=== PATIENT | female | born 1975 | race Caucasian/White ===

== ENCOUNTER 2016-11-07 13:30 | Emergency (ER) | payer SELFPAY ==
[~2016-11-07] VITALS: Ht 154.9 cm; Wt 95.5 kg
[~2016-11-07 13:30] MED LIST: ALBUTEROL S2.5 MG/.5 IN; BACTRIM DS1 TAB PO; CLINDAMYCIN HC150 MG PO; FLOVENT HFA44 MCG IN; FUROSEMIDE40 MG PO; LEVOTHYROXIN100 MCG PO; LEVOTHYROXINE; LIPITOR40 M1 PO; LISINOPRIL2.5 MG PO; LORATADINE10 M1 PO; METFORMIN500 MG PO; MICRO-K10 ME1 PO; MUPIROCIN2 % EX; NAPROSYN500 MG PO; NORCO1 TA1 PO; PANTOPRAZOLE SO40 MG PO; PROVENTIL HFA IN; QVAR80 MCG IN; SINGULAIR10 MG PO; ULTRAM50 M1 PO
[2016-11-07 13:37] VITALS: BP 132/74
[2016-11-07] MEDS ORDERED: EC-NAPROSYN500 MG PO (14:02)
[2016-11-07] MEDS ORDERED: PERCOCET 5/325M1 TAB PO (14:02)
[2016-11-07] MEDS ORDERED: FLEXERIL PO (14:02)
== END 2016-11-07 14:15 | disposition home or self-care (01) | DRG 556 ==
LOC: ED 13:30
DX: M62.838 Other muscle spasm (principal); R07.89 Other chest pain

== ENCOUNTER 2018-09-07 20:14 | Emergency (ER) | payer SELFPAY ==
[~2018-09-07] VITALS: Ht 154.9 cm; Wt 104.0 kg
[~2018-09-07 20:14] MED LIST changes: +EC-NAPROSYN500 MG PO; +FLEXERIL PO; +PERCOCET 5/325M1 TAB PO
[2018-09-07] MEDS ORDERED: ADDERALL20 MG PO (21:02)
[2018-09-07] MEDS ORDERED: PROVENTIL108 MCG/AC PO (21:13)
[2018-09-07] MEDS ORDERED: FLOVENT HF220 MCG/AC PO (21:13)
[2018-09-07] MEDS ORDERED: VYVANSE40 MG PO (21:13)
[2018-09-07] MEDS ORDERED: VIIBRYD40 MG PO (21:14)
[2018-09-07] MEDS ORDERED: LEVOTHYROXIN150 MC1 PO (21:14)
[2018-09-07] MEDS ORDERED: PERCOCET 10/31 COMBO PO (21:38)
[2018-09-07 21:40] VITALS: BP 118/77
== END 2018-09-07 21:40 | disposition home or self-care (01) | DRG 563 ==
LOC: ED 20:14
DX: S83.91XA Sprain of unspecified site of right knee, initial encounter (principal); J45.909 Unspecified asthma, uncomplicated; F41.9 Anxiety disorder, unspecified; F32.9 Major depressive disorder, single episode, unspecified; M19.90 Unspecified osteoarthritis, unspecified site; F17.200 Nicotine dependence, unspecified, uncomplicated; X58.XXXA Exposure to other specified factors, initial encounter

== ENCOUNTER → 2018-10-06 | Outpatient (REF) | payer BC ==
[~2018-10-06] MED LIST changes: +ADDERALL20 MG PO; +FLOVENT HF220 MCG/AC PO; +LEVOTHYROXIN150 MC1 PO; +PERCOCET 10/31 COMBO PO; +PROVENTIL108 MCG/AC PO; +VIIBRYD40 MG PO; +VYVANSE40 MG PO
== END | disposition home or self-care (01) | DRG 645 ==
LOC: ULTRASND 11:00
PROVIDERS: ATTEND Physician Assistant Medical
DX: E04.1 Nontoxic single thyroid nodule (principal)

== ENCOUNTER → 2018-10-22 | Outpatient (REF) | END | disposition home or self-care (01) | DRG 556 | LOC: LAB 12:21 | PROVIDERS: ATTEND Physician Assistant Medical | DX: M25.50 Pain in unspecified joint (principal); R73.01 Impaired fasting glucose; E03.9 Hypothyroidism, unspecified ==

== ENCOUNTER 2022-09-15 18:16 | Emergency (ER) | payer SELFPAY ==
[~2022-09-15] VITALS: Ht 154.9 cm; Wt 97.5 kg
[2022-09-15] MEDS ORDERED: TRAMADOL HCL50 MG PO (19:43)
[2022-09-15 19:47] VITALS: BP 155/87
== END 2022-09-15 19:52 | disposition home or self-care (01) | DRG 563 ==
LOC: ED 18:16
DX: S46.911A Strain of unspecified muscle, fascia and tendon at shoulder and upper arm level, right arm, initial encounter (principal); W01.0XXA Fall on same level from slipping, tripping and stumbling without subsequent striking against object, initial encounter; F41.8 Other specified anxiety disorders; J45.909 Unspecified asthma, uncomplicated

== ENCOUNTER 2023-01-25 14:25 | Emergency (ER) | payer MEDICAID ==
[~2023-01-25] VITALS: Ht 154.9 cm; Wt 100.0 kg
[2023-01-25] VITALS (11 sets, daily range): BP systolic 124–157; BP diastolic 63–90
[~2023-01-25 14:25] MED LIST changes: +TRAMADOL HCL50 MG PO
[2023-01-25 15:04] LABS: BASO% 0.5 % (0-3); EOS% 2.4 % (0-8); MEAN CORPUSCULAR HGB 18.4 pG CALC (26.0-32.0); MEAN CORPUSCULAR HGB CONC 27.8 g/dL CAL (32.0-36.0); MONO% 4.7 % (2-13); NEUT# 6.98 thou/uL (2.00-7.15); NEUT% 73.4 % (42-76); RED BLOOD COUNT 3.64 mill/uL (4.20-5.60)
[2023-01-25 15:06] LABS: HEMATOCRIT 24.1 % (37.0-47.0); MEAN CELL VOLUME 66.2 fL CALC (80.0-100.0)
[2023-01-25 15:07] LABS: HEMOGLOBIN 6.7 g/dl (12.0-16.0)
[2023-01-25 15:17] LABS: ALBUMIN 4.3 g/dL (3.2-5.0); ALKALINE PHOSPHATASE 126 u/l (38-126); ANION GAP 15 (6-22 (CALC)); BILIRUBIN, TOTAL 0.2 mg/dL (0.02-1.3); BUN 10 mg/dL (7-17); BUN/CREATININE RATIO 11 (12-20 (CALC)); CARBON DIOXIDE 24 mmol/l (22-30); CHLORIDE 106 mmol/l (95-108); CREATININE 0.8 mg/dL (0.5-1.0); GFR FOR AFR.AMER. > 60 ML/MIN (>=60 (CALC)); GFR OTHER RACES > 60 ML/MIN (>=60 (CALC)); POTASSIUM 3.6 mmol/l (3.5-5.1); SGOT/AST 33 u/l (14-36); SODIUM 141 mmol/l (137-146); TOTAL PROTEIN 7.6 g/dL (6.3-8.2)
[2023-01-25] MEDS ORDERED: IPRATROPIUM BROMIDE IN (19:07)
[2023-01-25] MEDS ORDERED: FEOSOL45 MG PO (20:37)
== END 2023-01-25 21:14 | disposition home or self-care (01) ==
LOC: ED 14:25
PROVIDERS: Family Medicine
DX: D62 Acute posthemorrhagic anemia (principal); N92.1 Excessive and frequent menstruation with irregular cycle; R07.89 Other chest pain; J45.909 Unspecified asthma, uncomplicated; F32.A Depression, unspecified; F41.9 Anxiety disorder, unspecified; F17.200 Nicotine dependence, unspecified, uncomplicated
CPT/HCPCS: P9016

== ENCOUNTER 2024-08-15 18:50 | Observation (INO) | payer SELFPAY ==
[~2024-08-15] VITALS: Ht 154.9 cm; Wt 97.0 kg
[2024-08-15] VITALS (22 sets, daily range): BP systolic 73–145; BP diastolic 57–80
[~2024-08-15 18:50] MED LIST changes: +FEOSOL45 MG PO; +IPRATROPIUM BROMIDE IN
[2024-08-15] MEDS ORDERED: KETOROLAC TROMETHAMINE 30 MG/ML SDV IV STA (19:16)
[2024-08-15 19:45] LABS: URINE BILIRUBIN - DIPSTICK Negative (NEGATIVE); URINE BLOOD DIPSTICK Negative (NEGATIVE); URINE COLOR Yellow; URINE GLUCOSE - DIPSTICK Negative (NEGATIVE); URINE KETONE Negative (NEGATIVE); URINE LEUK ESTERASE Negative (NEGATIVE); URINE NITRITE - DIPSTICK Negative (Negative); URINE PROTEIN - DIPSTICK Negative (NEG-TRACE); URINE UROBILINOGEN - DIPSTICK 0.2 E.U./dL (0.2)
[2024-08-15 19:59] LABS: BASO% 0.7 % (0-3); EOS% 2.3 % (0-8); HEMATOCRIT 23.8 % (37.0-47.0); IMMATURE GRANULOCYTES 0.4 % (0.0-5.0); LYMPH% 20.9 % (15-41); MEAN CELL VOLUME 63.6 fL CALC (80.0-100.0); MEAN CORPUSCULAR HGB 15.8 pG CALC (26.0-32.0); MEAN CORPUSCULAR HGB CONC 24.8 g/dL CAL (32.0-36.0); NEUT# 5.72 thou/uL (2.00-7.15); NEUT% 69.7 % (42-76); RED BLOOD COUNT 3.74 mill/uL (4.20-5.60); RED CELL DISTRI WIDTH 22.1 % (11.5-15.5)
[2024-08-15 20:12] LABS: ALBUMIN 4.4 g/dL (3.2-5.0); CREATININE 0.7 mg/dL (0.5-1.0); POTASSIUM 3.8 mmol/l (3.5-5.1); TOTAL PROTEIN 7.6 g/dL (6.3-8.2)
[2024-08-15 20:14] LABS: BILIRUBIN, TOTAL 0.5 mg/dL (0.02-1.3)
[2024-08-15 20:21] LABS: HEMOGLOBIN 5.9 g/dl (12.0-16.0)
[2024-08-15] MEDS ORDERED: SODIUM CHLORIDE 0.9% 500 ML IV ONE (21:14)
[2024-08-15] MEDS ORDERED: LACTATED RINGER'S 1,000 ML IV ONE (22:15)
[2024-08-15] MEDS ORDERED: ONDANSETRON 4 MG/TAB ODT SL PRN (23:00)
[2024-08-15] MEDS ORDERED: ACETAMINOPHEN 325 MG/TAB PO PRN (23:00)
[2024-08-15] MEDS ORDERED: MELATONIN 3 MG/TAB PO PRN (23:00)
[2024-08-15] MEDS ORDERED: Polyethylene Glycol 3350 17 GM/PKT PO PRN (23:00)
[2024-08-15] MEDS ORDERED: LACTATED RINGER'S 1,000 ML IV PRN (23:00)
[2024-08-15] MEDS ORDERED: oxyCODONE HCL 5 MG/TAB PO PRN (23:00)
[2024-08-15 23:21] LABS: C-REACTIVE PROTEIN < 0.5 mg/dL (0-0.9)
[2024-08-16] VITALS (11 sets, daily range): BP systolic 109–149; BP diastolic 53–83
[2024-08-16] MEDS ORDERED: LEVOTHYROXINE SODIUM 50 MCG/TAB PO SCH (06:00)
[2024-08-16 06:20] LABS: BASO% 0.5 % (0-3); EOS% 2.2 % (0-8); HEMATOCRIT 27.7 % (37.0-47.0); IMMATURE GRANULOCYTES 0.4 % (0.0-5.0); MEAN CORPUSCULAR HGB 19.3 pG CALC (26.0-32.0); MEAN CORPUSCULAR HGB CONC 28.5 g/dL CAL (32.0-36.0); MONO% 6.4 % (2-13); NEUT# 6.5 thou/uL (2.00-7.15); NEUT% 70.5 % (42-76); RED BLOOD COUNT 4.1 mill/uL (4.20-5.60); RED CELL DISTRI WIDTH 24.8 % (11.5-15.5)
[2024-08-16 06:23] LABS: HEMOGLOBIN 7.9 g/dl (12.0-16.0); MEAN CELL VOLUME 67.6 fL CALC (80.0-100.0)
[2024-08-16 06:34] LABS: ALBUMIN 3.6 g/dL (3.2-5.0); CREATININE 0.7 mg/dL (0.5-1.0); MAGNESIUM 1.8 mg/dL (1.6-2.3); POTASSIUM 3.8 mmol/l (3.5-5.1); TOTAL PROTEIN 6.6 g/dL (6.3-8.2)
[2024-08-16 06:38] LABS: BILIRUBIN, TOTAL 0.9 mg/dL (0.02-1.3)
[2024-08-16] MEDS ORDERED: Pantoprazole Sodium 40 MG VIAL (Protonix) IV SCH (09:00)
[2024-08-16] MEDS ORDERED: IRON SUCROSE COMPLEX 20 MG/ML 10ML VIAL IV ONE (10:30)
[2024-08-16] MEDS ORDERED: SODIUM CHLORIDE 0.9% 500 ML IV ONE (10:30)
[2024-08-16] MEDS ORDERED: ALBUTEROL SULFATE 2.5 MG VIAL IN PRN (12:00)
[2024-08-16] MEDS ORDERED: IRON SUCROSE COMPLEX 400 MG in SODIUM CHLORIDE 0.9% 250 ML IV SCH (13:00)
[2024-08-16] MEDS ORDERED: LEVOTHYROXIN50 MC1 PO (15:25)
[2024-08-16 18:14] LABS: HEMATOCRIT 34.9 % (37.0-47.0); HEMOGLOBIN 10.2 g/dl (12.0-16.0)
== END 2024-08-16 18:35 | disposition home or self-care (01) | DRG 812 ==
LOC: ED 18:50 → ED-I 21:26 → ED 22:17 → MS2 22:18
PROVIDERS: Family Medicine; ADMIT Internal Medicine; ATTEND Internal Medicine
PROC: 30233N1 Transfusion of Nonautologous Red Blood Cells into Peripheral Vein, Percutaneous Approach (ICD-10-PCS; principal; 2024-08-15)
PROC: 30233N1 Transfusion of Nonautologous Red Blood Cells into Peripheral Vein, Percutaneous Approach (ICD-10-PCS; 2024-08-15)
PROC: 30233N1 Transfusion of Nonautologous Red Blood Cells into Peripheral Vein, Percutaneous Approach (ICD-10-PCS; 2024-08-16)
PROC: 30233N1 Transfusion of Nonautologous Red Blood Cells into Peripheral Vein, Percutaneous Approach (ICD-10-PCS; 2024-08-16)
DX: D50.0 Iron deficiency anemia secondary to blood loss (chronic) (principal); N92.0 Excessive and frequent menstruation with regular cycle; D25.9 Leiomyoma of uterus, unspecified; E03.9 Hypothyroidism, unspecified; F32.A Depression, unspecified; F41.9 Anxiety disorder, unspecified; J45.909 Unspecified asthma, uncomplicated; Z86.0100 Personal history of colon polyps, unspecified
CPT/HCPCS: G0378; J0744; J1756; J1836; J2470; P9016; Q9967